=== PATIENT | female | born 1970 | race Caucasian/White ===

== ENCOUNTER 2021-01-02 16:24 | Emergency (ER) | payer OTHER ==
--- NOTE | 2021-01-02 17:17 | EDM.PDOC ---
<Jaylin Siddiqui - Last Filed: 01/02/21 17:45> ED HPI GENERAL MEDICAL PROBLEM - General Chief Complaint: Neurological Problem Stated Complaint: HAD MRI AT CLINIC TOLD TO COME HERE/ALF Time Seen by Provider: 01/02/21 17:13 Source of Information: Reports: Patient History Limitations: Reports: No Limitations - History of Present Illness INITIAL COMMENTS - FREE TEXT/NARRATIVE: pt fell about 1 week ago and she landed on her left side. She has had unbearable neck pain since that time. She had a Mri of the neck which showed marked degenerative changes. She was also found to have a short segment of disection of the vertebral artery. Onset: Other ( fall was about 1 week ago. ) Duration: Hour(s): Location: Reports: Neck Associated Symptoms: Reports: Headaches, Other ( severe neck pain) Neck Pain Score (Numeric/FACES): 9 Left Lower Back Pain Score (Numeric/FACES): 8 - Related Data Allergies Allergy/AdvReac Type Severity Reaction Status Date / Time adhesive Allergy Rash Verified 01/02/21 16:47 Anesthetics - Amide Type - Allergy Abdominal Verified 01/02/21 16:47 Select A Pain Anesthetics - Amarilis Type- Allergy Abdominal Verified 01/02/21 16:47 Parabens Pain Sulfa (Sulfonamide Allergy Edema Verified 01/02/21 16:47 Antibiotics) Home Meds: Home Meds Aspirin 81 mg PO DAILY #30 tab.chew 01/02/21 [Rx] Clopidogrel [Plavix] 75 mg PO DAILY #30 tablet 01/02/21 [Rx] Cyclobenzaprine [Flexeril] 10 mg PO TID 01/02/21 [History] traMADol [Ultram] 50 mg PO TID PRN #15 tablet 01/02/21 [Rx] traZODone 50 mg PO BEDTIME 01/02/21 [History] Past Medical History HEENT History: Reports: Impaired Vision Cardiovascular History: Reports: Heart Murmur, Other (See Below) Other Cardiovascular History: mitral valve prolapse Neurological History: Reports: Concussion Oncologic (Cancer) History: Reports: Malignant Melanoma Dermatologic History: Reports: Melanoma - Past Surgical History HEENT Surgical History: Reports: Naso-Sinus Surgery Neurological Surgical History: Reports: Lumbar Spine, Other (See Below) Other Neurological Surgeries/Procedures: anterior approach Musculoskeletal Surgical History: Reports: Arthroscopic Knee Social & Family History - Tobacco Use Tobacco Use Status *Q: Never Tobacco User - Caffeine Use Caffeine Use: Reports: None - Recreational Drug Use Recreational Drug Use: No ED ROS GENERAL - Review of Systems Review Of Systems: See Below Constitutional: Reports: No Symptoms HEENT: Reports: No Symptoms Respiratory: Reports: No Symptoms Cardiovascular: Reports: No Symptoms Endocrine: Reports: No Symptoms GI/Abdominal: Reports: No Symptoms : Reports: No Symptoms Musculoskeletal: Reports: Other ( sevee neck pain. ) Skin: Reports: No Symptoms Neurological: Reports: Headache ED EXAM, NEURO - Physical Exam Exam: See Below Text/Narrative:: pt arrived with history of a possible disection of her left vertebral artery. She is not having sig neuro symptoms. she will have a angio of her head and neck. Exam Limited By: No Limitations General Appearance: Alert, Moderate Distress, Other (pupils are equal and reactive. ) Ears: Normal TMs Nose: Normal Inspection Throat/Mouth: Normal Inspection, Other (normal carotid) Head Exam: Atraumatic Neck: Normal Inspection (is very tender on the left side of her neck), Other Respiratory/Chest: No Respiratory Distress Cardiovascular: Regular Rate, Rhythm GI/Abdominal: Soft, Non-Tender (Female) Exam: Deferred Rectal (Female) Exam: Deferred Neurological: Alert, Oriented x 3 Departure - Departure Disposition: Home, Self-Care 01 Clinical Impression: Vertebral artery dissection - Discharge Information Instructions: Vertebral Artery Dissection Referrals: Lilliam Rojas PA-C [Primary Care Provider] - Forms: ED Department Discharge Additional Instructions: Start the aspirin and Plavix once a day you will need to continue with this medication for 6 months. Use the Ultram as needed for pain control but do not take this with your Flexeril. Plan for repeat CTA of the head neck in 3 months, follow-up with your primary care and obtain a referral consultation for neurosurgery, recommend no lifting no hyperextension of the neck. Return to the emergency department immediately with any strokelike symptoms Sepsis Event Note (ED) - Evaluation Sepsis Screening Result: No Definite Risk <OfficerMyles - Last Filed: 01/02/21 19:49> Course - Vital Signs Last Recorded V/S: Last Vital Signs Temp 98.0 F 01/02/21 17:01 Pulse 65 01/02/21 19:35 Resp 16 01/02/21 17:01 BP 129/77 01/02/21 19:35 Pulse Ox 99 01/02/21 18:31 - Orders/Labs/Meds Orders: Active Orders 24 hr Category Date Time Status Aspirin Med 01/02/21 19:42 Once 81 mg PO ONETIME ONE Clopidogrel [Plavix] Med 01/02/21 19:42 Once 75 mg PO ONETIME ONE Iopamidol [[id number] (76%)] Med 01/02/21 17:30 Active 100 ml IV . DIRECTED Sodium Chloride 0.9% [Normal Saline] 100 ml Med 01/02/21 17:30 Active IV ASDIRECTED Medication Orders Sodium Chloride (Normal Saline) 100 mls @ 3 mls/sec IV ASDIRECTED MELISSA Last Admin: 01/02/21 17:38 Dose: 3 mls/sec Documented by: CHRISTINE Iopamidol (Iopamidol 755 Mg/Ml 100 Ml Bottle) 100 ml IV . DIRECTED MELISSA Last Admin: 01/02/21 17:38 Dose: 100 ml Documented by: CHRISTINE Labs: Laboratory Tests 01/02/21 01/02/21 Range/Units 17:12 17:12 WBC 8.2 (4.5-11.0) K/uL RBC 4.59 (3.30-5.50) M/uL Hgb 13.3 (12.0-15.0) g/dL Hct 40.8 (36.0-48.0) % MCV 89 (80-98) fL MCH 29 (27-31) pg MCHC 33 (32-36) % Plt Count 250 (150-400) K/uL Neut % (Auto) 68 H (36-66) % Lymph % (Auto) 19 L (24-44) % Benson % (Auto) 7 H (2-6) % Eos % (Auto) 6 H (2-4) % Baso % (Auto) 0 (0-1) % Sodium 143 (140-148) mmol/L Potassium 3.9 (3.6-5.2) mmol/L Chloride 104 (100-108) mmol/L Carbon Dioxide 30 (21-32) mmol/L Anion Gap 9.3 (5.0-14.0) mmol/L BUN 16 (7-18) mg/dL Creatinine 0.7 (0.5-1.0) mg/dL Est Cr Clr Drug Dosing 102.21 mL/min Estimated GFR (MDRD) > 60 (>60) BUN/Creatinine Ratio Not Reportable Glucose 100 (74-106) mg/dL Calcium 9.1 (8.5-10.1) mg/dL Total Bilirubin 0.2 (0.2-1.0) mg/dL AST 22 (15-37) U/L ALT 40 (12-78) U/L Alkaline Phosphatase 63 (46-116) U/L Total Protein 6.0 L (6.4-8.2) g/dL Albumin 3.7 (3.4-5.0) g/dL Globulin 2.3 (2.3-3.5) g/dL Albumin/Globulin Ratio 1.6 (1.2-2.2) Meds: Medications Generic Name Dose Route Start Last Admin Trade Name Freq PRN Reason Stop Dose Admin Sodium Chloride 100 mls @ 3 mls/sec 01/02/21 17:30 01/02/21 17:38 Normal Saline IV 3 mls/sec ASDIRECTED MELISSA Administration Iopamidol 100 ml 01/02/21 17:30 01/02/21 17:38 Iopamidol 755 Mg/Ml 100 Ml Bottle IV 100 ml . DIRECTED MELISSA Administration Departure - Departure Time of Disposition: 19:44 Condition: Fair Sepsis Event Note (ED) - Focused Exam Vital Signs: Vital Signs Temp Pulse Resp BP Pulse Ox 01/02/21 19:35 65 129/77 01/02/21 18:31 63 135/74 99 01/02/21 17:11 77 125/66 100 01/02/21 17:01 98.0 F 76 16 128/78 99 01/02/21 16:39 98.0 F 76 16 128/78 99 - My Orders Last 24 Hours: My Active Orders 01/02/21 19:42 Aspirin 81 mg PO ONETIME ONE Clopidogrel [Plavix] 75 mg PO ONETIME ONE - Assessment/Plan Last 24 Hours: My Active Orders 01/02/21 19:42 Aspirin 81 mg PO ONETIME ONE Clopidogrel [Plavix] 75 mg PO ONETIME ONE Plan: Took over care from Dr. Siddiqui at 1800 pending results of CTA Assessment Acuity = acute Site and laterality = left vertebral artery dissection Etiology = probably related to trauma Manifestations = pain Location of injury = Home Lab values = CBC, CMP unremarkable CTA describes dissection above Plan Call discussed the case with Dr. Osorio neurosurgery [facility] recommended to antiplatelet therapy of Plavix and aspirin follow-up CTA in 3 months, no lifting no hyperextension of the neck recommend consultation with neurosurgery as follow-up outpatient. Prescription written for Plavix 75 mg 1 tab p.o. daily total #30 prescription written for Ultram 50 mg 1 tab p.o. 3 times daily as needed total #15 both medications sent to [facility] pharmacy This note was dictated using [employer] voice recognition software please call with any questions on syntax or grammar.
[2021-01-02] MEDS: Iopamidol 755 Mg/ML 100 ML Bottle IV SCH (17:38)
[2021-01-02] MEDS: Sodium Chloride 0.9% 100 ML IV SCH (17:38)
--- NOTE | 2021-01-02 18:42 | CRLCT ---
DATE: 01/02/2021. CLINICAL HISTORY: Patient with small vertebral artery dissection. TECHNIQUE: Standard helical CT image acquisition through the head and neck was performed after intravenous contrast bolus enhancement. Multiplanar reconstructed images were performed and interpreted. COMPARISON: None available. FINDINGS: There is a very shallow luminal outpouching measuring approximately 2 mm arising from the ventral wall of the cervical segment of the left vertebral artery, just proximal to its entry into the left foramen transversarium of the cervical spine. This may reflect a small arterial dissection versus a small pseudoaneurysm resulting as a sequela of a prior arterial dissection. In addition, there is evidence of a dissection flap involving a short segment of the or distal cervical left vertebral artery, at the C2-C3 levels. No evidence of resulting flow-limiting no stenosis. The cervical segment of the right vertebral artery is patent throughout its course. The intracranial segments of the vertebral arteries are within normal limits. The bilateral common carotid arteries are patent. The proximal internal carotid arteries and more distal cervical segments of the internal carotid arteries are patent, noting marked tortuosity of the distal cervical segment of the right internal carotid artery. No intracranial proximal large vessel occlusion or flow-limiting luminal stenosis. There is normal opacification of major intracranial venous structures. The visualized lung apices are unremarkable The thyroid gland is unremarkable. Mild degenerative changes of the cervical spine. IMPRESSION: 1. There are two separate sites of short-segment arterial dissection involving the cervical segment of the left vertebral artery as follows: Proximal cervical segment shallow pseudoaneurysm just proximal to its entry into the foramen transversarium; and more distal cervical segment at C2-3 with dissection flap but no evidence of flow limiting stenosis. 2. No intracranial proximal large vessel occlusion. Please note that all CT scans at this facility use dose modulation, iterative reconstruction, and/or weight-based dosing when appropriate to reduce radiation dose to as low as reasonably achievable. Dictated by Marty Doherty MD @ Jan 02 2021 6:16PM Signed by Dr. Marty Doherty @ Jan 02 2021 6:40PM
[2021-01-02] MEDS: Clopidogrel 75 MG Tab PO ONE (20:14)
[2021-01-02] MEDS: Aspirin 81 MG Tab.Chew PO ONE (20:14)
== END 2021-01-02 20:28 | disposition home or self-care (01) ==
LOC: JP.ED 16:24 → EDBD 16:24 → JP.ED 20:28
DX: I77.74 Dissection of vertebral artery (principal); M54.5 Low back pain; Z91.048 Other nonmedicinal substance allergy status; Z88.2 Allergy status to sulfonamides; Z88.4 Allergy status to anesthetic agent; Z79.82 Long term (current) use of aspirin; Z79.02 Long term (current) use of antithrombotics/antiplatelets
CPT/HCPCS: 36415; 70496; 70498; 80053; 85025; 99284; A9270; Q9967

== ENCOUNTER 2021-01-03 13:00 | Emergency (ER) | payer OTHER ==
--- NOTE | 2021-01-03 13:31 | EDM.PDOC ---
ED HPI GENERAL MEDICAL PROBLEM - General Chief Complaint: Cardiovascular Problem Stated Complaint: DIZZ,FAST HEART RATE Time Seen by Provider: 01/03/21 13:15 Source of Information: Reports: Patient, Old Records, RN History Limitations: Reports: No Limitations - History of Present Illness INITIAL COMMENTS - FREE TEXT/NARRATIVE: 50 yo female was recently worked up and found to have a mild L vertebral artery dissection. After neurosurgical consultation she was put on Plavix and ASA which she is taking. She was advised to return if any number of sx's should develop so she is back due to perceived transient rapid HR and dizziness. She has been eating and drinking normally. Her urine is not dark. Her rapid HR has resolved on arrival. No GERMAN. No fever. She had a CBC and a CMP yesterday that here all WNL's. Onset: Today, Sudden Onset Date: 01/03/21 Duration: Minutes:, Improving Location: Reports: Head (dizziness, persisting. ), Chest (tachycardia, now resolved. ) Quality: Reports: Other (no pain reported that is new) Severity: Mild (dizziness) Improves with: Reports: None Worsens with: Reports: Other (uncertain) Context: Reports: Other (See HPI) Associated Symptoms: Reports: No Other Symptoms. Denies: Confusion, Chest Pain, Fever/Chills, Headaches, Nausea/Vomiting, Shortness of Breath Treatments [employer]: Reports: Other (see below) (Usual meds) - Related Data Allergies Allergy/AdvReac Type Severity Reaction Status Date / Time adhesive Allergy Rash Verified 01/02/21 16:47 Anesthetics - Amide Type - Allergy Abdominal Verified 01/02/21 16:47 Select A Pain Anesthetics - Amarilis Type- Allergy Abdominal Verified 01/02/21 16:47 Parabens Pain Sulfa (Sulfonamide Allergy Edema Verified 01/02/21 16:47 Antibiotics) Home Meds: Home Meds Aspirin 81 mg PO DAILY #30 tab.chew 01/02/21 [Rx] Clopidogrel [Plavix] 75 mg PO DAILY #30 tablet 01/02/21 [Rx] Cyclobenzaprine [Flexeril] 10 mg PO TID PRN 01/02/21 [History] traMADol [Ultram] 50 mg PO TID PRN #15 tablet 01/02/21 [Rx] traZODone 50 mg PO BEDTIME 01/02/21 [History] Acetaminophen [Tylenol Extra Strength] 1,000 mg PO Q6H 01/03/21 [History] Past Medical History HEENT History: Reports: Impaired Vision Cardiovascular History: Reports: Heart Murmur, Other (See Below) Other Cardiovascular History: mitral valve prolapse Neurological History: Reports: Concussion Oncologic (Cancer) History: Reports: Malignant Melanoma Dermatologic History: Reports: Melanoma - Past Surgical History HEENT Surgical History: Reports: Naso-Sinus Surgery Neurological Surgical History: Reports: Lumbar Spine, Other (See Below) Other Neurological Surgeries/Procedures: anterior approach Musculoskeletal Surgical History: Reports: Arthroscopic Knee Social & Family History - Caffeine Use Caffeine Use: Reports: None ED ROS GENERAL - Review of Systems Review Of Systems: See Below Constitutional: Reports: No Symptoms HEENT: Reports: No Symptoms Respiratory: Reports: No Symptoms Cardiovascular: Reports: Palpitations (now resolved) Endocrine: Reports: No Symptoms GI/Abdominal: Reports: No Symptoms : Reports: No Symptoms Musculoskeletal: Reports: Neck Pain (subacute) Skin: Reports: No Symptoms Neurological: Reports: Dizziness (new and persisting). Denies: Headache, Numbness, Seizure, Syncope, Tingling, Change in Speech Psychiatric: Reports: No Symptoms ED EXAM, GENERAL - Physical Exam Exam: See Below Exam Limited By: No Limitations General Appearance: Alert, WD/WN, No Apparent Distress Eye Exam: Bilateral Eye: EOMI, Normal Inspection, PERRL Ears: Normal External Exam, Normal Canal, Hearing Grossly Normal, Normal TMs Ear Exam: Bilateral Ear: Auricle Normal, Canal Normal, TM normal Nose: Normal Inspection, No Blood Throat/Mouth: Normal Inspection, Normal Lips, Normal Oropharynx, Normal Voice, No Airway Compromise Head: Atraumatic, Normocephalic Neck: Normal Inspection Respiratory/Chest: No Respiratory Distress, Lungs Clear, Normal Breath Sounds, No Accessory Muscle Use Cardiovascular: Regular Rate, Rhythm, No Edema GI/Abdominal: Normal Bowel Sounds, Soft, Non-Tender, No Distention. No: Distended, Tender Back Exam: Normal Inspection Extremities: Normal Inspection, Normal Range of Motion, Non-Tender, No Pedal Edema Neurological: Alert, Oriented, CN II-XII Intact, Normal Cognition, No Motor/Sensory Deficits Psychiatric: Normal Affect, Normal Mood Skin Exam: Warm, Dry, Intact, Normal Color, No Rash Course - Vital Signs Last Recorded V/S: Last Vital Signs Temp 36.7 C 01/03/21 13:14 Pulse 62 01/03/21 14:26 Resp 16 01/03/21 14:26 BP 112/75 01/03/21 14:26 Pulse Ox 98 01/03/21 14:26 Orthostatic Blood Pressure [ 121/83 Standing] Orthostatic Blood Pressure [ 118/76 Sitting] Orthostatic Blood Pressure [ 121/83 Supine] - Orders/Labs/Meds Orders: Active Orders 24 hr Category Date Time Status Cardiac Monitoring [RC] .As Directed Care 01/03/21 13:10 Active Orthostatic Vital Signs [RC] ASDIRECTED Care 01/03/21 13:25 Active Meds: Medications Discontinued Medications Generic Name Dose Route Start Last Admin Trade Name Freq PRN Reason Stop Dose Admin Lorazepam 0.5 mg 01/03/21 13:18 01/03/21 13:57 Lorazepam 0.5 Mg Tab PO 01/03/21 13:19 0.5 mg ONETIME ONE Administration - Re-Assessments/Exams Free Text/Narrative Re-Assessment/Exam: 01/03/21 14:49 Feeling much better now. Will discharge. Departure - Departure Time of Disposition: 14:50 Disposition: Home, Self-Care 01 Condition: Good Clinical Impression: Dizziness Referrals: Lilliam Rojas PA-C [Primary Care Provider] - Forms: ED Department Discharge Additional Instructions: Continue current meds. Avoid extreme extension or flexion of your neck. F/U with your clinic provider william. Return as needed. Sepsis Event Note (ED) - Focused Exam Vital Signs: Vital Signs Temp Pulse Resp BP Pulse Ox 01/03/21 14:26 62 16 112/75 98 01/03/21 13:14 36.7 C 78 16 126/77 98 - My Orders Last 24 Hours: My Active Orders 01/03/21 13:10 Cardiac Monitoring [RC] .As Directed 01/03/21 13:25 Orthostatic Vital Signs [RC] ASDIRECTED - Assessment/Plan Last 24 Hours: My Active Orders 01/03/21 13:10 Cardiac Monitoring [RC] .As Directed 01/03/21 13:25 Orthostatic Vital Signs [RC] ASDIRECTED
[2021-01-03] MEDS: LORazepam 0.5 MG Tab PO ONE (13:57)
== END 2021-01-03 15:20 | disposition home or self-care (01) ==
LOC: JP.ED 13:00
DX: R42 Dizziness and giddiness (principal); Z91.048 Other nonmedicinal substance allergy status; Z88.4 Allergy status to anesthetic agent; Z88.2 Allergy status to sulfonamides; Z79.82 Long term (current) use of aspirin; Z79.02 Long term (current) use of antithrombotics/antiplatelets
CPT/HCPCS: 99284; A9270

== ENCOUNTER 2021-03-22 11:47 | Emergency (ER) | payer OTHER | END 2021-03-22 12:50 | disposition left against medical advice (07) | LOC: JP.ED 11:47 | DX: Z53.21 Procedure and treatment not carried out due to patient leaving prior to being seen by health care provider (principal) ==

== ENCOUNTER 2021-03-26 10:30 | Emergency (ER) | payer OTHER ==
[2021-03-26] MEDS ORDERED: Sodium Chloride 0.9% 10 ML Syringe FLUSH PRN (11:39)
[2021-03-26] MEDS ORDERED: Iopamidol 755 Mg/ML 100 ML Bottle IV ONE (11:41)
[2021-03-26] MEDS ORDERED: Sodium Chloride 0.9% 100 ML IV SCH (11:45)
--- NOTE | 2021-03-26 11:48 | EDM.PDOC ---
ED HPI GENERAL MEDICAL PROBLEM - General Chief Complaint: General Stated Complaint: SWELLING, HEADACHE Time Seen by Provider: 03/26/21 11:25 Source of Information: Reports: Patient, RN History Limitations: Reports: No Limitations - History of Present Illness INITIAL COMMENTS - FREE TEXT/NARRATIVE: Patient has a history of vertebral artery dissection. She has consulted with neurology and cardiology who placed her on Plavix and aspirin. She was in the December and had a CTA of both her head and neck and released from the ER. Approximately 2 weeks ago patient had increased symptoms. She attempted to be seen in an urgent care that was not able to help her. She came to the ER several days ago it was too busy for her to stay and be seen. She is here today with increased left neck pain, left neck swelling, and bilateral headache. She tries not to take anything for the pain due to risk of bleed. If and when she takes something for headache it is Tylenol which she has not taken yet at this time. Onset: Gradual Onset Date: 03/12/21 Duration: Day(s):, Getting Worse Location: Reports: Head, Neck Quality: Reports: Pressure, Throbbing Severity: Moderate Improves with: Reports: None Worsens with: Reports: Other (Patient states worse with current heat wave. Especially when she is up and walking a lot outside and in the heat.) Context: Reports: Activity Associated Symptoms: Reports: Headaches. 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 prescribed), Other Medication(s) (Plavix currently prescribed) Left Neck Pain Score (Numeric/FACES): 8 - Related Data Allergies Allergy/AdvReac Type Severity Reaction Status Date / Time adhesive Allergy Rash Verified 03/26/21 10:59 Anesthetics - Amide Type - Allergy Abdominal Verified 03/26/21 10:59 [facility] - Amarilis Type- Allergy Abdominal Verified 03/26/21 10:59 Parabens Pain Sulfa (Sulfonamide Allergy Edema Verified 03/26/21 10:59 Antibiotics) Home Meds: Home Meds Clopidogrel [Plavix] 75 mg PO DAILY #30 tablet 01/02/21 [Rx] Cyclobenzaprine [Flexeril] 10 mg PO TID PRN 01/02/21 [History] traMADol [Ultram] 50 mg PO TID PRN #15 tablet 01/02/21 [Rx] Acetaminophen [Tylenol Extra Strength] 1,000 mg PO Q6H 01/03/21 [History] Amoxicillin 500 mg PO BID 10 Days #20 tablet 03/26/21 [Rx] Past Medical History HEENT History: Reports: Impaired Vision Cardiovascular History: Reports: Heart Murmur, Other (See Below) Other Cardiovascular History: mitral valve prolapse Neurological History: Reports: Concussion Psychiatric History: Reports: Anxiety Hematologic History: Reports: Other (See Below) Other Hematologic History: blood clots Oncologic (Cancer) History: Reports: Malignant Melanoma Dermatologic History: Reports: Melanoma - Past Surgical History HEENT Surgical History: Reports: Adenoidectomy, Naso-Sinus Surgery, Tonsillectomy Cardiovascular Surgical History: Reports: Vascular Surgery Other Cardiovascular Surgeries/Procedures: venous insufficiency, GSV ablasion in both legs Neurological Surgical History: Reports: Lumbar Spine, Other (See Below) Other Neurological Surgeries/Procedures: anterior approach Musculoskeletal Surgical History: Reports: Arthroscopic Knee, Other (See Below) Other Musculoskeletal Surgeries/Procedures:: lumbar fusion Social & Family History - Tobacco Use Tobacco Use Status *Q: Never Tobacco User - Caffeine Use Caffeine Use: Reports: None - Recreational Drug Use Recreational Drug Use: No ED ROS GENERAL - Review of Systems Review Of Systems: See Below Constitutional: Reports: No Symptoms HEENT: Denies: Ear Pain, Eye Pain Respiratory: Denies: No Symptoms Cardiovascular: Reports: Palpitations (Occasional in chest and abdomen). Denies: Dyspnea on Exertion, Edema, Lightheadedness Endocrine: Reports: No Symptoms GI/Abdominal: Denies: Abdominal Pain, Difficulty Swallowing, Distension, Nausea : Reports: No Symptoms Musculoskeletal: Reports: Neck Pain (Left-sided) Skin: Reports: No Symptoms Neurological: Reports: Dizziness, Headache. Denies: Trouble Speaking, Difficulty Walking Psychiatric: Reports: No Symptoms Hematologic/Lymphatic: Reports: No Symptoms Immunologic: Reports: No Symptoms ED EXAM, GENERAL - Physical Exam Exam: See Below Exam Limited By: No Limitations General Appearance: Alert, WD/WN, No Apparent Distress Eye Exam: Bilateral Eye: EOMI, Normal Inspection, PERRL Neck: Full Range of Motion, Tender Lateral (Left-sided). No: Carotid Bruit, Lym phadenopathy (R), Lymphadenopathy (L) Respiratory/Chest: No Respiratory Distress, Lungs Clear, Normal Breath Sounds, No Accessory Muscle Use, Chest Non-Tender Cardiovascular: Normal Peripheral Pulses, Regular Rate, Rhythm, No Edema, No Gallop, No Murmur, No Rub Peripheral Pulses: 2+: Carotid (L), Carotid (R), Radial (L), Radial (R), Popliteal (L), Popliteal (R), Posterior Tibial (L), Posterior Tibial (R), Dorsalis Pedis (L), Dorsalis Pedis (R) GI/Abdominal: Normal Bowel Sounds, Soft, Non-Tender, No Organomegaly, No Distention, No Abnormal Bruit Back Exam: Normal Inspection, Full Range of Motion Extremities: Normal Inspection, Normal Range of Motion Neurological: Alert, Oriented, CN II-XII Intact, Normal Cognition Psychiatric: Normal Affect, Normal Mood Skin Exam: Warm, Dry, Intact, Normal Color Lymphatic: No Adenopathy Course - Vital Signs Last Recorded V/S: Last Vital Signs Temp 36.9 C 03/26/21 10:58 Pulse 67 03/26/21 10:58 Resp 18 03/26/21 10:58 BP 133/80 03/26/21 10:58 Pulse Ox 98 03/26/21 10:58 - Orders/Labs/Meds Orders: Active Orders 24 hr Category Date Time Status Peripheral IV Discontinue [OM.PC] Routine Oth 03/26/21 13:06 Ordered Peripheral IV Insertion Adult [OM.PC] Routine Oth 03/26/21 11:39 Ordered Meds: Medications Discontinued Medications Generic Name Dose Route Start Last Admin Trade Name Freq PRN Reason Stop Dose Admin Sodium Chloride 100 mls @ 4 mls/sec 03/26/21 11:45 03/26/21 11:58 Normal Saline IV 4 mls/sec ASDIRECTED MELISSA Administration Iopamidol 100 ml 03/26/21 11:41 03/26/21 11:58 Iopamidol 755 Mg/Ml 100 Ml Bottle IV 03/26/21 11:42 100 ml . DIRECTED ONE Administration Sodium Chloride 10 ml 03/26/21 11:39 03/26/21 11:58 Sodium Chloride 0.9% 10 Ml Syringe FLUSH 10 ml ASDIRECTED PRN Administration Keep Vein Open - Radiology Interpretation Free Text/Narrative:: CT HEAD per radiology read: NO Acute Intracranial process, noted left ethmoid sinusitis CTA Neck per radiology read: Stable vertral dissection with no changes from previous CTA dated 01/02/21 CTA Head per radiology read: - NEGATIVE brain CTA CT Results Date: 03/26/21 - Re-Assessments/Exams Free Text/Narrative Re-Assessment/Exam: 03/26/21 12:55 Radiology studies are unchanged form previous exam. Head CT does show some sinusitis which abx will be used to treat. Conversation with pt regarding a primary care provider in the area to help monitor changes during her time in the area and coordinate with cardiology and neurology. Pt in agreement with this plan. Pt to return to ER/clinic if any changes of worsening symptoms. Departure - Departure Time of Disposition: 13:12 Disposition: Home, Self-Care 01 Condition: Fair Clinical Impression: Vertebral artery dissection, Sinusitis chronic, ethmoidal - Discharge Information *PRESCRIPTION DRUG MONITORING PROGRAM REVIEWED*: Not Applicable *COPY OF PRESCRIPTION DRUG MONITORING REPORT IN PATIENT MATT: Not Applicable Prescriptions: Amoxicillin 500 mg PO BID 10 Days #20 tablet Instructions: Sinusitis, Adult, Vertebral Artery Dissection Referrals: PCP,None [Primary Care Provider] - Forms: ED Department Discharge Additional Instructions: Take abx as instructed for sinusitis. Return to ER/clinic if any changes, or worsening symptoms. Make appointment to establish with care provider [place] to help coordinate and closely monitor stable vertebral dissection. Sepsis Event Note (ED) - Evaluation Sepsis Screening Result: No Definite Risk - Focused Exam Vital Signs: Vital Signs Temp Pulse Resp BP Pulse Ox 03/26/21 10:58 36.9 C 67 18 133/80 98 03/26/21 10:52 36.9 C 67 18 133/80 98 - My Orders Last 24 Hours: My Active Orders 03/26/21 11:39 Peripheral IV Insertion Adult [OM.PC] Routine 03/26/21 13:06 Peripheral IV Discontinue [OM.PC] Routine - Assessment/Plan Last 24 Hours: My Active Orders 03/26/21 11:39 Peripheral IV Insertion Adult [OM.PC] Routine 03/26/21 13:06 Peripheral IV Discontinue [OM.PC] Routine
--- NOTE | 2021-03-26 12:18 | CT ---
Head wo Cont CLINICAL HISTORY: Headache COMPARISON: CTA head 01/02/2021 TECHNIQUE: Transverse scans were obtained from the base of the skull through the vertex without IV contrast on a multislice, multidetector CT scanner. Auto dosage reduction and iterative reconstruction techniques employed. FINDINGS: No focal abnormal parenchymal density is identified. There is no mass effect, hemorrhage, or extraaxial collection. The basal cisterns and sulci over the convexities are normal. The ventricles are normal. There is some left-sided ethmoid sinusitis IMPRESSION: No acute intracranial process Left-sided ethmoid sinusitis
--- NOTE | 2021-03-26 12:35 | CT ---
Ang Neck CLINICAL HISTORY: Neck pain, history of vertebral artery dissection TECHNIQUE: Multiple axial images were obtained through the neck without and with the IV infusion of iodinated contrast. From these images sagittal, coronal, and 3D reconstructions of the aortic arch and carotids were obtained and viewed on a dedicated and independent workstation. NASCET criteria is used. Auto dosage reduction and iterative reconstruction techniques employed. FINDINGS: Patient has a known dissection of the left vertebral artery within the foramen transversarium of C2 downward to C3. Overall vessel diameter is unchanged. The carotid arteries have a normal course and caliber without significant plaque. Subclavian arteries have a normal course and caliber bilaterally. There is straightening of the upper cervical lordosis which may indicate spasm. There is some degenerative disc disease with spondylosis IMPRESSION: Stable segmental dissection of the left vertebral artery at the C2-3 level
--- NOTE | 2021-03-26 12:43 | CT ---
Ang Head CLINICAL HISTORY: History of vertebral artery dissection. COMPARISON: 12/23/2020 TECHNIQUE: Multiple volume rendered and MIP 3D reconstructions were generated from source images obtained on a spiral scanner before and after intravenous iodinated contrast enhancement Auto dosage reduction and iterative reconstruction techniques employed. FINDINGS: Internal carotid arteries: Normal course and contour Anterior cerebral arteries: Normal course and contour. The anterior communicating artery is patent Middle cerebral arteries: Normal course and contour Posterior cerebral arteries: Normal course and contour. Small or absent right posterior communicating artery. Vertebral/basilar arteries: Normal course and contour intracranially IMPRESSION: Negative CTA brain
== END 2021-03-26 13:19 | disposition home or self-care (01) ==
LOC: JP.ED 10:30
DX: I77.74 Dissection of vertebral artery (principal); J32.2 Chronic ethmoidal sinusitis; Z91.048 Other nonmedicinal substance allergy status; Z88.4 Allergy status to anesthetic agent; Z88.2 Allergy status to sulfonamides; Z79.02 Long term (current) use of antithrombotics/antiplatelets
CPT/HCPCS: 70450; 70496; 70498; 99284; Q9967